=== PATIENT | male | born 2000 | race African-American/Black ===

== ENCOUNTER 2019-05-28 19:44 | Emergency (ER) | payer BC ==
[2019-05-28] MEDS ORDERED: Ondansetron PF 4 MG/2 ML Vial ONE (20:28)
[2019-05-28 20:34] LABS: #Lymphocytes 1.5 thou/uL (1.20-3.40); #Monocytes 0.4 thou/uL (0.11-0.59); %Basophils 0.3 % (0.0-1.0); %Eosinophils 0.4 % (0.0-10.0); %Monocytes 4.6 % (0.0-10.0); %Neutrophils 77.7 % (42.0-75.0); Hemoglobin 16.1 g/dL (14.0-18.0); Mean Corpuscular HGB CONC 31.6 g/dL (32.0-36.0); Mean Corpuscular Hemoglobin 25.7 pg (27.0-31.0); Mean Corpuscular Volume 81.5 fL (78.0-98.0); Mean Platelet Volume 6.8 fL (7.4-10.4); Platelet Count 241 thou/uL (130-400); Red Blood Cell (RBC) Count 6.26 mill/uL (4.70-6.10)
== END 2019-05-28 22:40 | disposition home or self-care (01) ==
LOC: ERS 19:44
DX: K22.6 Gastro-esophageal laceration-hemorrhage syndrome (principal)
CPT/HCPCS: 36415; 96374; J2405